=== PATIENT | female | born 1995 | race Caucasian/White ===

== ENCOUNTER → 2019-05-11 | Outpatient (REF) | payer OTHER | LOC: M SFHCLERA 17:23 | PROVIDERS: ATTEND Nurse Practitioner Family | DX: J30.2 Other seasonal allergic rhinitis (principal) ==

== ENCOUNTER → 2020-10-10 | Outpatient (REF) | payer OTHER ==
[2020-10-10 17:39] LABS: HEMATOCRIT 39.2 % (36.0-47.0); MEAN CORPUSCULAR HGB CONC 33.2 g/dl (32.0-36.5); MEAN CORPUSCULAR VOLUME 87.5 fl (80.0-96.0); PLATELET COUNT, AUTOMATED 274 10^3/uL (150-450); RED BLOOD COUNT 4.48 10^6/uL (4.00-5.40); WHITE BLOOD COUNT 9.2 10^3/uL (4.0-10.0)
[2020-10-10 18:45] LABS: HEPATITIS C VIRUS ABY INDEX 0.1 INDEX (<0.8); HIV 1&2 SCREEN CENTAUR NEGATIVE (NEGATIVE)
== END ==
LOC: M PLALAB 14:43
PROVIDERS: ATTEND Advanced Practice Midwife
DX: Z34.01 Encounter for supervision of normal first pregnancy, first trimester (principal); Z3A.00 Weeks of gestation of pregnancy not specified

== ENCOUNTER → 2020-11-10 | Outpatient (CLI) | payer OTHER | LOC: M PLALAB 09:27 | PROVIDERS: ATTEND Advanced Practice Midwife | DX: Z34.02 Encounter for supervision of normal first pregnancy, second trimester (principal); Z3A.00 Weeks of gestation of pregnancy not specified; Z53.9 Procedure and treatment not carried out, unspecified reason ==

== ENCOUNTER → 2020-11-24 | Outpatient (CLI) | payer OTHER ==
--- NOTE | 2020-11-24 09:16 | REP ---
INDICATION: ANATOMY COMPARISON: None. TECHNIQUE: Transabdominal obstetrical ultrasound with color Doppler evaluation. FINDINGS: Examination demonstrates a single live intrauterine in cephalic presentation. motion is identified by technologist. Placenta is noted posterior, low lying and grade 1 measuring 5 mm from the closed internal os. Cervix measures 4.4 cm in length and appears closed.. Gestational age by LMP 17 weeks 6 days with TONNY 04/28/2021. Gestational age by current measurements 18 weeks 6 days with TONNY 04/21/2021. FHR equals 156 beats per minute. BPD: 4.3 cm 19 weeks 0 days HC: 15.9 cm 18 weeks 5 days AC: 12.6 cm 18 weeks 2 days FL: 2.9 cm 18 weeks 6 days HL: 2.9 cm 19 weeks 2 days HC/AC: 1.26 Estimated weight 246 grams (85thpercentile). Anatomical assessment demonstrates normal structures including cranium, cavum, cerebellum/posterior fossa, lungs, ventricular outflow tracts, diaphragm, stomach, cord insertion/three-vessel cord, kidneys/bladder, spine, and extremities. 3 mm choroid plexus cyst noted. Incomplete evaluation of the facial features (nose/lips) and four-chamber heart due to positioning. IMPRESSION: 1. Single live intrauterine in cephalic presentation demonstrating appropriate interval growth. 2. Low lying placenta 5 mm from the closed internal os. 3. Anatomical limitations as noted above may warrant re-evaluation and follow-up. <Electronically signed by Gunnar Harrison > 11/24/20 [id number]
== END ==
LOC: M WHC 07:48
PROVIDERS: ATTEND Advanced Practice Midwife
DX: Z34.02 Encounter for supervision of normal first pregnancy, second trimester (principal); Z3A.17 17 weeks gestation of pregnancy

== ENCOUNTER → 2020-12-20 | Outpatient (CLI) | payer OTHER ==
--- NOTE | 2020-12-20 10:31 | REP ---
INDICATION: F/U ANATOMY. Follow-up low-lying placenta. Established TONNY April 28, 2021, 21 weeks 4 days. COMPARISON: Comparison study 24 November 2020.. TECHNIQUE: Transabdominal and transvaginal obstetric sonography. FINDINGS: Scanning through the gravid uterus demonstrates a viable single intrauterine gestation in cephalic lie. motion is observed and heart rate is recorded at 161 beats per minute. A low-lying posterior placenta is seen, grade 1, the posterior tip of the placenta is visualized transvaginally, 1.6 cm from the internal cervical os. Closed cervical length is measured at 4.3 cm transvaginally.. No extrauterine abnormality is observed. Amniotic fluid is subjectively normal. The following anatomic structures are identified today and felt to be unremarkable: cranium, face and profile nose and lips, four-chamber heart, diaphragm, left-sided stomach, abdominal wall cord insertion, right and left kidney, for bladder, three-vessel cord. In conjunction with the prior study, anatomic survey is felt to be complete.. Biometry chart: BPD 5.5 cm, 22 weeks 6 days Head circumference 20.6 cm, 22 weeks 5 days Abdominal circumference 17.0 cm, 22 weeks 0 days Femur length 4.3 cm, 24 weeks 0 days Humeral length 3.9 cm, 23 weeks 6 days HC AC ratio normal 1.21 Cephalic index normal 0.75 Estimated weight 544 g, 1 lb 3 oz, greater than 97th percentile for 21 weeks 4 days IMPRESSION: Viable single intrauterine gestation at 23 weeks 1 days by today's composite sonographic criteria. TONNY by today's sonography April 17, 2021.. No complication identified. Expected gestational age estimate based on prior sonography 21 weeks 4 days TONNY by prior sonography April 28, 2021. <Electronically signed by Salas Amador > 12/20/20 0173
== END ==
LOC: M WHC 07:28
PROVIDERS: ATTEND Advanced Practice Midwife
DX: O44.42 Low lying placenta NOS or without hemorrhage, second trimester (principal); Z3A.23 23 weeks gestation of pregnancy

== ENCOUNTER → 2021-01-23 | Outpatient (REF) | payer OTHER ==
[2021-01-23 13:19] LABS: HEMATOCRIT 32.3 % (36.0-47.0); HEMOGLOBIN 10.3 g/dl (12.0-15.5); MEAN CORPUSCULAR HEMOGLOBIN 28.1 pg (27.0-33.0); MEAN CORPUSCULAR HGB CONC 31.9 g/dl (32.0-36.5); MEAN CORPUSCULAR VOLUME 88.3 fl (80.0-96.0); PLATELET COUNT, AUTOMATED 247 10^3/uL (150-450); RED BLOOD COUNT 3.66 10^6/uL (4.00-5.40); WHITE BLOOD COUNT 7.6 10^3/uL (4.0-10.0)
== END ==
LOC: M PLALAB 09:24
PROVIDERS: ATTEND Advanced Practice Midwife
DX: O44.42 Low lying placenta NOS or without hemorrhage, second trimester (principal)

== ENCOUNTER → 2021-03-07 | Outpatient (CLI) | payer OTHER ==
--- NOTE | 2021-03-08 05:51 | REP ---
INDICATION: LOW LYING PLACENTA COMPARISON: 12/20/2020 TECHNIQUE: Transabdominal and transvaginal obstetrical ultrasound with color Doppler evaluation. FINDINGS: Examination demonstrates a single live intrauterine in cephalic presentation. motion is identified by technologist. Placenta is noted posterior and grade 1 without evidence for placenta previa or abruption. Amniotic fluid volume is normal. Cervix measures 4.4 cm in length and appears closed.. Gestational age by LMP and 1st U/S 32 weeks 4 days with TONNY 04/28/2021. Gestational age by current measurements 34 weeks 2 days with TONNY 04/16/2021. FHR equals 130 beats per minute. Estimated weight 2337 grams (84thpercentile). IMPRESSION: Placenta identified posteriorly and 4.2 cm from the closed internal os without evidence for placenta previa or low-lying placenta. The cervix appears closed. <Electronically signed by Gunnar Harrison > 03/08/21 [id number]
== END ==
LOC: M WHC 08:01
PROVIDERS: ATTEND Obstetrics & Gynecology
DX: O44.43 Low lying placenta NOS or without hemorrhage, third trimester (principal)
CPT/HCPCS: 76816; 76817; 90471; 90715; G0463

== ENCOUNTER → 2021-04-04 | Outpatient (REF) | payer OTHER | LOC: M SFHCWAGY 16:44 | PROVIDERS: ATTEND Specialist | DX: Z34.03 Encounter for supervision of normal first pregnancy, third trimester (principal) | CPT/HCPCS: 87081; 87186; G0463 ==

== ENCOUNTER 2021-04-26 09:55 | Inpatient (IN) | payer OTHER ==
[~2021-04-26] VITALS: Ht 190.5 cm; Wt 109.1 kg
[2021-04-26] MEDS ORDERED: PRENTAB9 PO (10:08)
[2021-04-26 10:15] VITALS: BP 133/84
[2021-04-26] MEDS ORDERED: PENICILLIN G POTASSIUM IV 5 MU in D5W MINI-BAG PLUS 100 ML IV STA (10:32)
--- NOTE | 2021-04-26 10:38 | HPEPDOC ---
Obstetrical History & Physical General Date of Admission Apr 26, 2021 at 10:30 History of Present Illness 25 yo at 39 5/7 weeks gestation by LMP c/w 11 week ultrasound presents with regular contractions starting at 4 am. no bleeding. good movement. Information Provided By: Patient Age: 25 : 1 Term: 0 Pre-term: 0 Abortions: 0 Livin Care Care: Good Care Dating Final EDC: Apr 28, 2021 Final EDC by: LMP, 1st trimester (US) Past Medical History Past Obstetrical History : Past Obstetrical History: [employer] History: No pertinent history Past Medical History Medical History none Surgical History: Denies/None Family History Significant Family History: No pertinent family hx Social History Marital Status: Family situation: Spouse/partner home Psychosocial History: No pertinent psych hx * Smoker: non-smoker Allergies Coded Allergies: No Known Drug Allergies (Verified Allergy, Unknown, 04/26/21) Medications Scheduled No.137/Iron/Folic Acd ( Vitamin Tablet) 1 Each Tablet, 1 TAB PO DAILY Physical Examination Physical Examination GENERAL: Alert and oriented times three. BREAST: . ABDOMEN: Gravid and non-tender to touch. FETUS: Is vertex (VTX) by sterile vaginal examination (SVE), fetus is vertex (VTX) by Jairo. HEART RATE: Regular rate and rhythm. LUNGS: Clear to auscultation (CTA). EXTREMITIES: No edema. No clonus. Deep tendon reflexes (DTRs) + . Vital Signs/I&O Vital Signs Date Time Temp Pulse Resp B/P (MAP) Pulse Ox O2 Delivery O2 Flow Rate FiO2 04/26/21 10:15 98.4 79 18 133/84 (100) Room Air Pertinent Laboratoy Data Blood Type: B+ Group B Streptococcus: Positive Vaginal Examination Dilation: 6 cm Effacement: 100% Station: -2 Cervical Consistency: Soft Cervical Position: Middle Presentation: Cephalic presentation Assessment Variability: Moderate Accelerations: Positive Decelerations: None Tocometer Contractions: Yes Frequency: regular Assessment/Plan Assessment Pt is a 25-year-old (G)1 para (P)0 at 39+5 weeks by LMP c/w 11-week ultrasound presents in active labor. Plan Admit and orient. Case Management Assistant and consent. Diet: reg. Group B Streptococcus (GBS) positive; will initiate antibiotics Labs and intravenous (IV) per unit protocol.. Anticipate normal spontaneous delivery () C-S as appropriate. GABRIELA TRUONG MD Apr 26, 2021 10:38
[2021-04-26] MEDS ORDERED: OXYTOCIN 30 UNITS IN 0.9% NaCl 500ML IV BAG (J2590) As Ordered ONE (11:00)
[2021-04-26 11:20] LABS: HEMATOCRIT 37.1 % (36.0-47.0); HEMOGLOBIN 11.5 g/dl (12.0-15.5); MEAN CORPUSCULAR HEMOGLOBIN 25.3 pg (27.0-33.0); MEAN CORPUSCULAR VOLUME 81.7 fl (80.0-96.0); PLATELET COUNT, AUTOMATED 247 10^3/uL (150-450); RED BLOOD COUNT 4.54 10^6/uL (4.00-5.40); WHITE BLOOD COUNT 11.7 10^3/uL (4.0-10.0)
[2021-04-26] MEDS ORDERED: FENTANYL 2MCG/ML ROPIVACAINE 0.2% IN 0.9% NACL 100ML IVBAG As Ordered ONE (11:33)
[2021-04-26] MEDS ORDERED: LIDOCAINE 1% MDV 20ML VIAL As Ordered ONE (12:17)
[2021-04-26] MEDS ORDERED: DOCUSATE SODIUM 100MG CAPSULE PO PRN (12:40)
[2021-04-26] MEDS ORDERED: OXYTOCIN DRIP 30 UNITS in IV 1 EA IV ONE (12:40)
[2021-04-26] MEDS ORDERED: METHYLERGONOVINE MALEATE 0.2 MG TAB PO PRN (12:40)
[2021-04-26] MEDS ORDERED: LIDOCAINE 1% MDV 20ML VIAL INFIL ONE (12:40)
[2021-04-26] MEDS ORDERED: MEASLES,MUMPS,RUBELLA VACCINE INJ (MMR-II) (90707) SC SCH (12:40)
[2021-04-26] MEDS ORDERED: ACETAMINOPHEN TAB 650MG DOSE (2X325MG) PO PRN (12:40)
[2021-04-26] MEDS ORDERED: RHOGAM 300 MCG (1500 IU) INJ (J2790) IM SCH (12:40)
--- NOTE | 2021-04-26 12:50 | DNPDOC ---
[facility] Delivery Note Delivery Note DATE OF DELIVERY: April 26, 2021 PREDELIVERY DIAGNOSIS: 39-5/7 weeks' gestation and labor. POST DELIVERY DIAGNOSIS: Delivered. PROCEDURE: Spontaneous vaginal delivery. AMMUNITION STOREKEEPER: Dr. Gabriela Truong MD ANESTHESIA: none. ESTIMATED BLOOD LOSS: 300 mL. FINDINGS: 7 pound 14 ounce female , Score 8/9. DELIVERY SUMMARY: Patient is a 25-year-old 1 now para 1 who was admitted to labor and delivery for labor. AROM performed for thick meconium. After a 20 minute second stage of labor pt had a spontaneous vaginal delivery of a 7 lb. 14 oz female. no nuchal cord. Shoulders delivered with ease. Placenta delivered spontaneously and appeared intact. Pt received IV Pitocin immediately after delivery of the placenta. A second degree perineal laceration was repaired under local anesthesia with 2-O Chromic in the usual fashion. Sponge and needle counts correct. GABRIELA TRUONG MD Apr 26, 2021 12:50
[2021-04-26] MEDS: IBUPROFEN 800 MG TAB PO PRN ×2 (13:30→21:31)
[2021-04-26] MEDS ORDERED: PENICILLIN G POTASSIUM IV 2.5 MU in IV 1 EA IV SCH (15:00)
[2021-04-26 15:04] VITALS: BP 123/68
[2021-04-26] MEDS: ACETAMINOPHEN 500 MG TAB PO PRN (17:11)
[2021-04-26 18:47] VITALS: BP 117/71
[2021-04-27] MEDS: ACETAMINOPHEN 500 MG TAB PO PRN (00:34)
[2021-04-27] MEDS: IBUPROFEN 800 MG TAB PO PRN (05:35)
[2021-04-27 06:32] VITALS: BP 130/86
--- NOTE | 2021-04-27 07:06 | IPNPDOC ---
Text Note Date of Service The patient was seen on 04/27/21. NOTE PP #1 Feels well. Adequate pain management. Voiding VSS, afebrile normotensive Breasts soft, nipples intact Fundus firm, NT, down 1 FB Lochia rubra light without odor Perineum healing PP #1 Routine care. Anticipate D/C in am VS,Fishbone, I+O VS, Fishbone, I+O Laboratory Tests 04/26/21 11:02 Vital Signs Date Time Temp Pulse Resp B/P (MAP) Pulse Ox O2 Delivery O2 Flow Rate FiO2 04/27/21 06:32 97.5 64 18 130/86 (101) 04/26/21 10:15 Room Air I&O- Last 24 Hours up to 6 AM 04/27/21 06:00 Intake Total 200 ml Output Total 300 ml Balance -100 ml Samia Williamson CNM Apr 27, 2021 07:06
[2021-04-27] MEDS ORDERED: PRENATAL VITAMINS CHEWABLE TABLET PO SCH (09:00)
[2021-04-27] MEDS: PRENATAL VITAMINS CHEWABLE TABLET PO SCH (10:43)
[2021-04-27] MEDS: IBUPROFEN 600MG TAB PO PRN ×2 (15:32→22:05)
[2021-04-27 18:00] VITALS: BP 140/77
[2021-04-28] MEDS: ACETAMINOPHEN 500 MG TAB PO PRN ×2 (00:03→08:16)
[2021-04-28] MEDS: IBUPROFEN 600MG TAB PO PRN (05:28)
[2021-04-28 05:42] VITALS: BP 130/64
[2021-04-28] MEDS: PRENATAL VITAMINS CHEWABLE TABLET PO SCH (08:15)
[2021-04-28] MEDS ORDERED: ACET-683 PO (10:24)
[2021-04-28] MEDS ORDERED: IBUP80TA PO (10:24)
== END 2021-04-28 11:50 | disposition home or self-care (01) | DRG 807 ==
LOC: M LDO 09:55 → M LDI 10:30 → M OBS 14:55
PROVIDERS: ADMIT Specialist; ATTEND Specialist
PROC: 10E0XZZ Delivery of Products of Conception, External Approach (ICD-10-PCS; principal; 2021-04-26)
PROC: 0KQM0ZZ Repair Perineum Muscle, Open Approach (ICD-10-PCS; 2021-04-26)
PROC: 10907ZC Drainage of Amniotic Fluid, Therapeutic from Products of Conception, Via Natural or Artificial Opening (ICD-10-PCS; 2021-04-26)
DX: O77.0 Labor and delivery complicated by meconium in amniotic fluid (principal); Z37.0 Single live birth; Z3A.39 39 weeks gestation of pregnancy; O99.824 Streptococcus B carrier state complicating childbirth; O70.1 Second degree perineal laceration during delivery